=== PATIENT | female | born 1955 | race African-American/Black ===

== ENCOUNTER 2019-06-28 12:27 | Outpatient (CLI) | payer MEDICARE, MEDICAID ==
--- NOTE | 2019-06-28 12:54 | RAD ---
EXAM: XR Foot Lt 3 View STANDARD PROVIDED CLINICAL HISTORY: Pain FINDINGS: There is no evidence for fracture or other acute osseous abnormality. Alignment appears anatomic. Rosemary nt spaces appear preserved. IMPRESSION: No evidence for an acute osseous abnormality or significant arthropathy.
--- NOTE | 2019-06-28 12:55 | RAD ---
EXAM: XR Foot Rt 3 View STANDARD PROVIDED CLINICAL HISTORY: Pain FINDINGS: There is no evidence for fracture or other acute osseous abnormality. Alignment appears anatomic. Rosemary nt spaces appear preserved. Mild first MTP joint degenerative change. IMPRESSION: No evidence for an acute osseous abnormality or significant arthropathy.
== END 2019-06-28 12:28 | disposition home or self-care (01) ==
LOC: BICRAD 12:27
PROVIDERS: ATTEND Internal Medicine
DX: M79.671 Pain in right foot (principal); M79.672 Pain in left foot

== ENCOUNTER 2023-07-25 08:29 | Outpatient (CLI) | payer OTHER, MEDICAID | END 2023-07-25 08:30 | disposition home or self-care (01) | LOC: RAD 08:29 | PROVIDERS: ATTEND Internal Medicine Critical Care Medicine | DX: R06.00 Dyspnea, unspecified (principal) | CPT/HCPCS: 71046 ==

== ENCOUNTER 2024-08-20 08:51 | Outpatient (CLI) | payer OTHER, MEDICAID | END 2024-08-20 08:52 | disposition home or self-care (01) | LOC: RAD 08:51 | PROVIDERS: ATTEND Internal Medicine Critical Care Medicine | DX: R06.00 Dyspnea, unspecified (principal); J98.4 Other disorders of lung | CPT/HCPCS: 71046 ==

== ENCOUNTER 2024-09-12 10:09 | Outpatient (CLI) | payer OTHER, MEDICAID | END 2024-09-12 10:10 | disposition home or self-care (01) | LOC: BICCT 10:09 | PROVIDERS: ATTEND Internal Medicine Critical Care Medicine | DX: R91.8 Other nonspecific abnormal finding of lung field (principal) | CPT/HCPCS: 71250 ==

== ENCOUNTER 2024-11-05 10:39 | Outpatient (CLI) | payer OTHER, MEDICAID | END 2024-11-05 10:40 | disposition home or self-care (01) | LOC: BICCT 10:39 | PROVIDERS: ATTEND Internal Medicine Critical Care Medicine | DX: R91.8 Other nonspecific abnormal finding of lung field (principal); J43.9 Emphysema, unspecified; J98.4 Other disorders of lung | CPT/HCPCS: 71250 ==

== ENCOUNTER 2025-05-28 13:06 | Outpatient (CLI) | payer OTHER | END 2025-05-28 13:07 | disposition home or self-care (01) | LOC: CT 13:06 | PROVIDERS: ATTEND Physician Assistant Medical | DX: R63.0 Anorexia (principal); R63.4 Abnormal weight loss; N20.0 Calculus of kidney; K57.30 Diverticulosis of large intestine without perforation or abscess without bleeding; D25.9 Leiomyoma of uterus, unspecified; N85.2 Hypertrophy of uterus; N94.89 Other specified conditions associated with female genital organs and menstrual cycle; I70.8 Atherosclerosis of other arteries | CPT/HCPCS: 74176 ==

== ENCOUNTER 2025-09-15 07:33 | Outpatient (CLI) | payer MEDICAID, OTHER | END 2025-09-15 07:34 | disposition home or self-care (01) | LOC: BICCT 07:33 | PROVIDERS: ATTEND Internal Medicine Critical Care Medicine | DX: R91.8 Other nonspecific abnormal finding of lung field (principal); J98.4 Other disorders of lung; J94.8 Other specified pleural conditions | CPT/HCPCS: 71250 ==